=== PATIENT | female | born 1960 | race Caucasian/White ===

== ENCOUNTER 2018-12-02 11:17 | Emergency (ER) | payer OTHER ==
--- NOTE | 2018-12-02 11:22 | PDOC ---
History of Present Illness - General Chief Complaint: Laceration Stated Complaint: rt thumb lac Time Seen by Provider: 12/02/18 11:19 History Source: Patient Exam Limitations: No Limitations - History of Present Illness Initial Comments: 12/02/18 11:21 58 YOF with rt thumb laceration s/p cutting while chopping cucumbers at home. +bleeding, able to be controlled +numbness to area of laceration tdap <10 years. 12/02/18 11:38 Past History - Past Medical History Allergies/Adverse Reactions: Allergies Allergy/AdvReac Type Severity Reaction Status Date / Time quinidine Allergy Severe Anaphylaxis Verified 12/02/18 11:18 epinephrine Allergy dental epi Verified 12/02/18 11:18 Tetracyclines Allergy Verified 12/02/18 11:18 eggplant Allergy hives Uncoded 12/02/18 11:18 Review of Systems - Review of Systems Able to Perform ROS?: Yes Comments:: 12/02/18 11:19 MUSCULOSKELETAL: No joint pain and swelling. No muscle pain/arthralgias. Back: no back pain SKIN: no redness or skin changes, no discharge, no rash. +thumb laceration. + bleeding. +bruising. Hematologic: +bleeding. NEUROLOGIC: No weakness, +finger numbness Allergic/Immunologic: no allergies All other systems reviewed and negative, or as documented in HPI. 12/02/18 11:20 12/02/18 11:38 *Physical Exam - Physical Exam Comments: 12/02/18 11:20 General: NAD, well appearing Vascular: 2+ radialis pulses symmetric and equal. Neuro: distal merchandise presentation associate strength 5/5. sensation grossly intact in median/radial/ ulnar distribution. MSK: soft compartments, Cap refill <2 sec. 2+ radialis pulses bilaterally and symmetric. Thumb IP intact. no joint tenderness. FROM. Skin: color normal color, warm and well perfused. superficial curvilinear laceration to right distal thumb pad measuring 2.5cm +tender to palp, +bleeding on palp 12/02/18 11:38 Procedures - Laceration/Wound Repair Right Volar Finger Wound Length: to 2.5 cm Wound Explored: clean Wound's Depth, Shape: superficial Irrigated w/ Saline: Yes Betadine Prep: No Wound Debrided: minimal Wound Repaired With: Dermabond Sterile Dressing Applied: Yes Progress: 12/02/18 11:39 The patient had a laceration that was 2.5cm in length. The wound was irrigated and cleaned. No foreign bodies were appreciated. It was subsequently closed with Dermabond in 4 layers. Medical Decision Making - Medical Decision Making 12/02/18 11:22 wound/laceration assessed and repaired, w/o complications, bleeding controlled. area cleaned and dried, dressings placed with topical bacitracin. monitor for signs of infection including fevers or chills, redness, streaking, swelling, purulence, malodor. keep dry x 24 hours, then may wash with soap and water 2-3X per day, topical antibiotics such as neosporin. follow up in days for suture removal. motrin/tylenol for pain control. tetanus is also up to date. pt and family made aware of impression and plan. copious irrigation with sterile water/normal saline approx 1 Liter, tolerated without difficulty. areas cleaned and dried, xeroform/topical abx, non adherent dressings, gauze and supportive care. No sutures indicated OR sutures placed for wound approximation *DC/Admit/Observation/Transfer Diagnosis at time of Disposition: Laceration of thumb - Discharge Dispostion Disposition: HOME Condition at time of disposition: Improved Decision to Admit order: No - Referrals - Patient Instructions Printed Discharge Instructions: DI for Laceration Repair Additional Instructions: Wound dressed with dermabond and steri strips. dermabond will fall off in 1 week. Follow up with your primary care doctor within 48-72 hours for a wound check. Keep wound covered and dry for 24 hours then clean with soap and water daily - do not scrub. Return to the ED for any worsening pain, redness, streaking (red lines), swelling, fever or chills. Keep the wound clean and as dry as possible. Do not immerse or soak the wound in water. This means no swimming, washing dishes (unless thick rubber gloves are used), baths, or hot tubs until the stitches are removed or after about two weeks if absorbable suture material was used. Leave original bandages on the wound for the first 24 hours. After this time, showering or rinsing is recommended, rather than bathing. the first day, remove old bandages and gently cleanse the wound with soap and water. Cleansing twice a day prevents buildup of debris and will result in easier suture removal. - Post Discharge Activity Forms/Work/School Notes: Back to Work
[2018-12-02 11:28] VITALS: BP 133/59; PULSE 72; TEMP 98.3; BMI 35.2
== END 2018-12-02 11:44 | disposition home or self-care (01) ==
LOC: FER 11:17
PROC: 0HQFXZZ Repair Right Hand Skin, External Approach (ICD-10-PCS; principal; 2018-12-02)
DX: S61.011A Laceration without foreign body of right thumb without damage to nail, initial encounter (principal); W26.0XXA Contact with knife, initial encounter; Y93.G1 Activity, food preparation and clean up; Y92.89 Other specified places as the place of occurrence of the external cause
CPT/HCPCS: 99283-25

== ENCOUNTER 2020-01-08 16:55 | Emergency (ER) | payer OTHER ==
[2020-01-08] MEDS ORDERED: ONDANSETRON 4 MG/2 ML VIAL IVPUSH ONE (17:12)
[2020-01-08] MEDS ORDERED: SODIUM CHLORIDE 0.9% 500 ML INFUS.BAG IV ONE (17:12)
[2020-01-08] MEDS ORDERED: morphine CARPU-JECT 4 MG/1 ML DISP.SYRIN IVPUSH ONE ×2 (17:12→18:52)
[2020-01-08] MEDS ORDERED: MAG HYDROX/AL HYDROX/SIMETH -MYLANTA- ORAL SUSPENSION PO ONE (17:12)
[2020-01-08] MEDS ORDERED: morphine SULFATE 4 MG/ML VIAL ONE ×2 (17:15→18:57)
[2020-01-08] MEDS ORDERED: ONDANSETRON 4 MG/2 ML VIAL ONE (17:15)
[2020-01-08 17:18] VITALS: BP 127/62; PULSE 89; BMI 34.4
[2020-01-08] MEDS ORDERED: MAG HYDROX/AL HYDROX/SIMETH 30 ML UNIT-DOSE CUP ONE (17:19)
[2020-01-08] MEDS ORDERED: FAMOTIDINE 20 MG/50 ML IVPB 20 MG/50 ML MG IVPB ONE ×2 (17:20→17:22)
--- NOTE | 2020-01-08 17:20 | PDOC ---
History of Present Illness - General Chief Complaint: Pain Stated Complaint: ABD PAIN Time Seen by Provider: 01/08/20 16:59 - History of Present Illness Initial Comments: The pt is a 59F w/ a history of Vera's esophagus, IBS, pyelonephritis, s/p nikki presents for evaluation of several hours of epigastric abdominal pain w/ associated nausea. The pain is burning/achy, non-radiating, associated with nausea, and is not exacerbated or alleviated by anything she can identify. She also reports generalized weakness. She has had pain similar to this previously. She has not been able to take anything for pain today. She denies fevers/chills, chest pain, trouble breathing vomiting, dysuria, hematuria, blood in her stool. 01/08/20 17:12 Past History - Medical History Allergies/Adverse Reactions: Allergies Allergy/AdvReac Type Severity Reaction Status Date / Time quinidine Allergy Severe Anaphylaxis Verified 01/08/20 17:00 epinephrine Allergy dental epi Verified 01/08/20 17:00 Tetracyclines Allergy Verified 01/08/20 17:00 eggplant Allergy hives Uncoded 01/08/20 17:00 Home Medications: Ambulatory Orders Diclofenac Sodium/Misoprostol [Diclofenac-Misoprost 75-200 Tb] 1 tab PO BID 11/09/19 Ondansetron [Zofran -] 4 mg PO TID PRN #14 tablet 11/09/19 Pantoprazole Sodium [Protonix] 40 mg PO DAILY 11/09/19 Dicyclomine HCl [Bentyl Oral Solution -] 10 mg PO Q6H #140 ml 01/08/20 Cardiac Disorders: Yes (SVT, CORONARY SPASM) COPD: No GI Disorders: Yes (abd spasms) Disorders: Yes (PYELONEPHRITIS) Hypercholesterolemia: Yes - Surgical History Cholecystectomy: Yes - Psycho-Social/Smoking History Smoking History: Never smoked Have you smoked in the past 12 months: No Information on smoking cessation initiated: No - Substance Abuse Hx (Audit-C & DAST Scrn) How often the patient has a drink containing alcohol: Monthly or less Score: In Men: 4 or > Positive; In Women: 3 or > Positive: 1 Screen Result (Pos requires Nsg. Audit-10AR): Negative In the last yr the pt used illegal drug/Rx for NonMed reason: No Score: Yes response is considered Positive: 0 Screen Result (Positive result requires Nsg. DAST-10): Negative Review of Systems - Review of Systems Able to Perform ROS?: Yes Comments:: GENERAL/CONSTITUTIONAL: No fever or chills. No weakness HEAD, EYES, EARS, NOSE AND THROAT: No change in vision. No change in hearing. No sore throat CARDIOVASCULAR: No chest pain or shortness of breath RESPIRATORY: Denies cough, hemoptysis GASTROINTESTINAL: No vomiting, diarrhea or constipation GENITOURINARY: No dysuria, frequency, or change in urination MUSCULOSKELETAL: No joint or muscle swelling or pain. No neck or back pain SKIN: No rash NEUROLOGIC: No headache, vertigo, loss of consciousness, or change in strength/sensation ENDOCRINE: No increased thirst. No abnormal weight change HEMATOLOGIC/LYMPHATIC: No anemia, easy bleeding, or history of blood clots ALLERGIC/IMMUNOLOGIC: No hives or skin allergy 01/08/20 18:24 Is the patient limited Uzbek proficient: No *Physical Exam - Vital Signs Last Vital Signs Temp Pulse Resp BP Pulse Ox 89 18 127/62 98 01/08/20 16:55 01/08/20 16:55 01/08/20 16:55 01/08/20 16:55 - Physical Exam GENERAL: Awake, alert, and oriented to person/place/time, in no acute distress HEAD: No signs of trauma, normocephalic, atraumatic EYES: PERRLA, EOMI, sclera anicteric, conjunctiva clear ENT: Hearing grossly normal, nares patent, oropharynx clear without exudates. Moist mucosa LUNGS: No distress, speaks in full sentences, clear to auscultation bilaterally HEART: Regular rate and rhythm, normal S1 and S2, no murmurs appreciated, peripheral pulses normal and equal bilaterally ABDOMEN: Soft, epigastric TTP w/o rebound or guarding, normoactive bowel sounds EXTREMITIES: Normal inspection, Normal range of motion, no edema. No clubbing or cyanosis NEUROLOGICAL: Cranial nerves II through XII grossly intact. Normal speech, normal gait, no focal sensorimotor deficits SKIN: Warm, Dry 01/08/20 18:54 ED Treatment Course - LABORATORY CBC & Chemistry Diagram: 01/08/20 17:15 01/08/20 17:15 Medical Decision Making - Medical Decision Making The pt is a 59F w/ a history of Vera's esophagus, IBS, pyelonephritis, s/p nikki presents for evaluation of several hours of epigastric abdominal pain w/ associated nausea. Ddx: IBS, PUD, GERD, gastroparesis; constipation ED Course CMP, CBC, Lipase Morphine, Pepcid, Maalox, Zofran for symptomatic relief No leukocytosis No anemia Lytes overall unremarkable LFTs unremarkable No EVA Trop I neg Pt given hyoscyamine as it worked before Pt with returning pain, will give Ofirmev and Morphine for pain 01/08/20 18:55 Pt signed out to night team Discharge - Discharge Information Problems reviewed: Yes Clinical Impression/Diagnosis: Abdominal pain Qualifiers: Abdominal location: epigastric Qualified Code(s): R10.13 - Epigastric pain Condition: Stable - Admission No - Additional Discharge Information Prescriptions: Dicyclomine HCl [Bentyl Oral Solution -] 10 mg PO Q6H #140 ml - Follow up/Referral - Patient Discharge Instructions Additional Instructions: Take the Bentyl 10 cc as often as every 4-6 hours as needed for abdominal pain a nd spasm. Return to the emergency department immediately with ANY new, persistent or worsening symptoms. Continue any medications as previously prescribed by your physician. You should follow up with your primary doctor as soon as possible regarding today's emergency department visit. . Please make sure your doctor reviews the results of your emergency evaluation. Thank you for coming to the Emergency Department today for your care. It was a pleasure to see you today. Please note that your evaluation is INCOMPLETE until you follow-up with your doctor. - Post Discharge Activity
[2020-01-08 17:36] LABS: BASO % 0.5 % (0-2.0); EOS % 3.6 % (0-4.5); HEMATOCRIT 38.4 % (32.4-45.2); HEMOGLOBIN 12.5 GM/dl (10.7-15.3); LYMPH % 26.5 % (8-40); MCH 28.6 pg (25.7-33.7); MCHC 32.5 g/dl (32.0-36.0); MEAN PLT VOLUME 8.7 fl (7.5-11.1); MONO % 7.1 % (3.8-10.2); NEUT % 62.3 % (42.8-82.8); PLATELET COUNT 347 K/MM3 (134-434); RBC 4.37 M/mm3 (3.60-5.2); RDW 13.5 % (11.6-15.6); WHITE BLOOD COUNT 6.2 K/mm3 (4.0-10.8)
[2020-01-08 17:45] LABS: BILIRUBIN,TOTAL 0.2 mg/dl (0.2-1); CALCIUM 8.7 mg/dl (8.5-10); CREATININE 1.3 mg/dl (0.55-1.3); POTASSIUM 3.5 mmol/L (3.5-5.1); TOT PROT 7.7 g/dl (6.4-8.2)
[2020-01-08] MEDS ORDERED: HYOSCYAMINE SULFATE 0.125 MG TABLET PO ONE (18:08)
[2020-01-08] MEDS ORDERED: HYOSCYAMINE SULFATE 0.125 MG *ODT ONE (18:13)
--- NOTE | 2020-01-08 18:19 | PDOC ---
Attending Attestation - Resident Resident Name: Jay Jay Cason - ED Attending Attestation I have performed the following: I have examined & evaluated the patient, The case was reviewed & discussed with the resident, I agree w/resident's findings & plan, Exceptions are as noted - HPI HPI: 01/08/20 18:19 59y F hx of ibs presents with SVT, pyelonephritis, ibs, hl, presens with complaint of abd spasms, feeling generally weak, tinglin gextremities, lightheaded, on set approx 30 min prior to presentation. she felt earlier today and had some lunch prior to onset of the pain. nots she was recently started on ve The pt endorses feeling similar symptoms yesterday for a brief period of time that resolved. She denies any fever/chills, vomiting, bpr. Pt states she was started on vibrezi that has started making her constipation, and her pain seems to start several hours after taking the medication. (started medication 2 days ago). - Physicial Exam PE: 01/08/20 18:25 GENERAL: The patient is awake, alert, and fully oriented, Nontoxic - in no acute distress. HEAD: Normocephalic, atraumatic. EYES: extraocular movements intact, sclera anicteric, conjunctiva clear. ENT: Normal voice, Moist mucous membranes. NECK: Normal range of motion, supple LUNGS: Breath sounds equal, clear to auscultation bilaterally. No wheezes, no rhonchi, no rales. HEART: Regular rate and rhythm, normal S1 and S2 without murmur, rub or gallop. ABDOMEN: Soft, mild diffuse tenderness, No guarding, no rebound. No CVA tenderness EXTREMITIES: Normal range of motion, no edema. NEUROLOGICAL: No facial assymetry, Normal speech, movinga ll 4 extremities spontaneously and symmetrically PSYCH: Normal mood, normal affect. SKIN: Warm, Dry, normal turgor, - Medical Decision Making 01/08/20 18:27 May be medication side effect Will obtain basic labs will give Pepcid Maalox, fluids, Zofran Will reassess Discharge - Discharge Information Problems reviewed: Yes Clinical Impression/Diagnosis: Abdominal pain Qualifiers: Abdominal location: epigastric Qualified Code(s): R10.13 - Epigastric pain Condition: Stable - Additional Discharge Information Prescriptions: Dicyclomine HCl [Bentyl Oral Solution -] 10 mg PO Q6H #140 ml - Follow up/Referral - Patient Discharge Instructions Additional Instructions: Take the Bentyl 10 cc as often as every 4-6 hours as needed for abdominal pain and spasm. Return to the emergency department immediately with ANY new, persistent or worsening symptoms. Continue any medications as previously prescribed by your physician. You should follow up with your primary doctor as soon as possible regarding today's emergency department visit. . Please make sure your doctor reviews the results of your emergency evaluation. Thank you for coming to the Emergency Department today for your care. It was a pleasure to see you today. Please note that your evaluation is INCOMPLETE until you follow-up with your doctor. - Post Discharge Activity
[2020-01-08] MEDS ORDERED: ACETAMINOPHEN 1000 MG/100 ML VIAL (NON FORMULARY) IVPB ONE (18:53)
[2020-01-08] MEDS ORDERED: DICYCLOMINE HCL 10 MG/5 ML PO ONE (18:53)
[2020-01-08] MEDS ORDERED: DICYCLOMINE HCL 10 MG CAPSULE ONE ×2 (18:56→20:41)
[2020-01-08] MEDS ORDERED: ACETAMINOPHEN INJECTION 100 ML IVPB ONE (18:57)
[2020-01-08] MEDS ORDERED: DICYCLOMINE HCL 10 MG/5 ML PO STA (20:35)
--- NOTE | 2020-01-08 20:37 | PDOC ---
*Physical Exam - Vital Signs Last Vital Signs Temp Pulse Resp BP Pulse Ox 89 18 127/62 98 01/08/20 16:55 01/08/20 16:55 01/08/20 16:55 01/08/20 16:55 ED Treatment Course - LABORATORY CBC & Chemistry Diagram: 01/08/20 17:15 01/08/20 17:15 - ADDITIONAL ORDERS Additional order review: Laboratory Results 01/08/20 01/08/20 17:15 17:15 Sodium 140 Potassium 3.5 Chloride 102 Carbon Dioxide 24 Anion Gap 14 BUN 23.0 H Creatinine 1.3 Est GFR (CKD-EPI)AfAm 52.00 Est GFR (CKD-EPI)NonAf 44.87 Random Glucose 104 Calcium 8.7 Total Bilirubin 0.2 AST 27 ALT 22 Alkaline Phosphatase 102 Troponin I < 0.03 Total Protein 7.7 Albumin 4.0 Lipase 85 01/08/20 17:15 RBC 4.37 MCV 88.0 MCHC 32.5 RDW 13.5 MPV 8.7 Neutrophils % 62.3 Lymphocytes % 26.5 Monocytes % 7.1 Eosinophils % 3.6 Basophils % 0.5 - Medications Given in the ED: ED Medications Discontinued Medications Generic Name Dose Route Start Last Admin Trade Name Freq PRN Reason Stop Dose Admin Acetaminophen 1,000 mg 01/08/20 18:53 01/08/20 19:44 Ofirmev Injection - IVPB 01/08/20 18:54 1,000 mg ONCE ONE Administration Al Hydroxide/Mg Hydroxide 30 ml 01/08/20 17:12 01/08/20 18:05 Mylanta Suspension - PO 01/08/20 17:13 30 ml ONCE ONE Administration Dicyclomine HCl 10 mg 01/08/20 18:53 01/08/20 19:05 Bentyl Oral Solution - PO 01/08/20 18:54 10 mg ONCE ONE Administration Hyoscyamine Sulfate 0.125 mg 01/08/20 18:08 01/08/20 18:14 Levsin - PO 01/08/20 18:09 0.125 mg ONCE ONE Administration Famotidine/Sodium Chloride 20 mg in 50 mls @ 100 mls/hr 01/08/20 17:20 01/08/20 17:24 Pepcid 20 Mg Premixed Ivpb - IVPB 01/08/20 17:49 100 mls/hr ONCE ONE Administration Morphine Sulfate 4 mg 08/03/20 17:12 01/08/20 17:18 Morphine Injection - IVPUSH 01/08/20 17:13 4 mg ONCE ONE Administration Morphine Sulfate 4 mg 01/08/20 18:52 01/08/20 19:10 Morphine Injection - IVPUSH 01/08/20 18:53 4 mg ONCE ONE Administration Ondansetron HCl 4 mg 01/08/20 17:12 01/08/20 17:15 Zofran Injection IVPUSH 01/08/20 17:13 4 mg ONCE ONE Administration Sodium Chloride 1,000 ml 01/08/20 17:12 01/08/20 17:10 Normal Saline - IV 01/08/20 17:13 1,000 ml ONCE ONE Administration ED Progress Note - Progress Note Progress Note: 01/08/20 20:32 Care of this patient was transferred to in from Dr. olvera at 1900 hrs. Patient is an employee here with history of irritable bowel syndrome. Patient has been under a lot of stress secondary to the COVID issues. Patient had a bout of diverticulitis in the past with similar symptoms. Patient had lab work that was done that was all normal. Patient given morphine some antispasmodics and fluids Patient also given hyoscyamine and Bentyl. Patient still has having intermittent cramps but does feel better. Patient discharged home has a GI doctor she will call and follow-up within the morning. Discharge - Discharge Information Problems reviewed: Yes Clinical Impression/Diagnosis: Abdominal pain Qualifiers: Abdominal location: epigastric Qualified Code(s): R10.13 - Epigastric pain Condition: Stable - Admission No - Follow up/Referral - Patient Discharge Instructions Additional Instructions: Take the Bentyl 10 cc as often as every 4-6 hours as needed for abdominal pain and spasm. Return to the emergency department immediately with ANY new, persistent or worsening symptoms. Continue any medications as previously prescribed by your physician. You should follow up with your primary doctor as soon as possible regarding today's emergency department visit. . Please make sure your doctor reviews the results of your emergency evaluation. Thank you for coming to the Emergency Department today for your care. It was a pleasure to see you today. Please note that your evaluation is INCOMPLETE until you follow-up with your doctor. - Post Discharge Activity
== END 2020-01-08 20:52 | disposition home or self-care (01) ==
LOC: FER 16:55
PROC: 3E033NZ Introduction of Analgesics, Hypnotics, Sedatives into Peripheral Vein, Percutaneous Approach (ICD-10-PCS; principal; 2020-01-08)
PROC: 3E033GC Introduction of Other Therapeutic Substance into Peripheral Vein, Percutaneous Approach (ICD-10-PCS; 2020-01-08)
DX: R10.13 Epigastric pain (principal)
CPT/HCPCS: 36415; 80053; 83690; 84484; 85025; 99284-25; J0131

== ENCOUNTER 2020-04-22 12:38 | Emergency (ER) | payer OTHER | END 2020-04-22 12:41 | disposition home or self-care (01) | LOC: JVIRT 12:38 | DX: Z11.59 Encounter for screening for other viral diseases (principal) | CPT/HCPCS: C9803; Q3014-GT; U0003 ==

== ENCOUNTER 2020-05-08 14:30 | Emergency (ER) | payer OTHER ==
[2020-05-08 14:49] VITALS: BP 127/85; PULSE 84; TEMP 98.8; BMI 34.1
[2020-05-08] MEDS ORDERED: IBUPROFEN 400 MG TABLET (FP) PO ONE ×2 (15:24→15:39)
== END 2020-05-08 15:46 | disposition home or self-care (01) ==
LOC: FER 14:30
DX: S80.02XA Contusion of left knee, initial encounter (principal)
CPT/HCPCS: 73560-TC-LT-FY; 99283-25

== ENCOUNTER 2024-04-05 10:09 | Emergency (ER) | payer BC ==
[2024-04-05] MEDS ORDERED: ONDANSETRON 4 MG/2 ML VIAL ONE (10:24)
[2024-04-05] MEDS ORDERED: MECLIZINE HCL 25 MG TABLET (FP) ONE ×3 (10:25→19:10)
[2024-04-05] MEDS ORDERED: ACETAMINOPHEN INJECTION 100 ML ONE (10:25)
[2024-04-05] MEDS: SODIUM CHLORIDE 1,000 ML IV STA (10:29)
[2024-04-05] MEDS: MECLIZINE HCL 25 MG TABLET (FP) PO ONE ×3 (10:29→19:15)
[2024-04-05] MEDS: ACETAMINOPHEN 1000 MG/100 ML BAG IVPB ONE (10:30)
[2024-04-05] MEDS: ONDANSETRON 4 MG/2 ML VIAL IVPUSH ONE (10:30)
[2024-04-05 10:37] VITALS: RESP 18; BMI 38.0
[2024-04-05 11:11] LABS: HEMATOCRIT 43.5 % (32.4-45.2); HEMOGLOBIN 13.8 G/dL (10.7-15.3); MCH 29.4 pg (25.7-33.7); MCHC 31.6 g/dl (32.0-36.0); MEAN PLT VOLUME 8.5 fl (7.5-11.1); RBC 4.68 10^6/uL (3.60-5.2); RDW 14.4 % (11.6-15.6); WHITE BLOOD COUNT 8.4 10^3/uL (4.0-10.8)
[2024-04-05 11:13] LABS: ALBUMIN 4.5 g/dl (3.4-5.0); BILIRUBIN,TOTAL 0.5 mg/dl (0.2-1); CALCIUM 9.7 mg/dl (8.5-10.1); TOT PROT 7.8 g/dl (6.4-8.2)
[2024-04-05 11:18] LABS: PLATELET ESTIMATE ADEQUATE
[2024-04-05] MEDS: LORazepam 2 MG/ML SDV VIAL IVPUSH STA ×2 (12:16→15:51)
[2024-04-05] MEDS ORDERED: KETOROLAC TROMETHAMINE 30 MG/1 ML VIAL ONE (12:57)
[2024-04-05] MEDS: KETOROLAC TROMETHAMINE 30 MG/1 ML VIAL IVPUSH ONE (13:05)
[2024-04-05 18:06] VITALS: BP 139/63; PULSE 64; TEMP 98.2
== END 2024-04-05 19:15 | disposition home or self-care (01) ==
LOC: FER 10:09
PROC: 3E033NZ Introduction of Analgesics, Hypnotics, Sedatives into Peripheral Vein, Percutaneous Approach (ICD-10-PCS; principal; 2024-04-05)
PROC: 3E0333Z Introduction of Anti-inflammatory into Peripheral Vein, Percutaneous Approach (ICD-10-PCS; 2024-04-05)
PROC: 3E033GC Introduction of Other Therapeutic Substance into Peripheral Vein, Percutaneous Approach (ICD-10-PCS; 2024-04-05)
PROC: 3E033GC Introduction of Other Therapeutic Substance into Peripheral Vein, Percutaneous Approach (ICD-10-PCS; 2024-04-05)
PROC: 3E0337Z Introduction of Electrolytic and Water Balance Substance into Peripheral Vein, Percutaneous Approach (ICD-10-PCS; 2024-04-05)
DX: R42 Dizziness and giddiness (principal); R11.0 Nausea; R51.9 Headache, unspecified; Z20.822 Contact with and (suspected) exposure to COVID-19
CPT/HCPCS: 0241U-QW; 36415; 70551-TC; 80053; 84484; 85027; 93005; 99285-25; J0131

== ENCOUNTER 2024-11-07 09:20 | Day surgery (SDC) | payer BC ==
[2024-11-07 09:52] VITALS: RESP 18; TEMP 97; BMI 36.9
[2024-11-07 11:31] VITALS: BP 131/59; PULSE 78
== END 2024-11-07 11:30 | disposition home or self-care (01) ==
LOC: FASU-ENDO 09:20
PROVIDERS: ATTEND Internal Medicine Gastroenterology
PROC: 0DJD8ZZ Inspection of Lower Intestinal Tract, Via Natural or Artificial Opening Endoscopic (ICD-10-PCS; principal; 2024-11-07 10:14)
DX: Z12.11 Encounter for screening for malignant neoplasm of colon (principal); K64.4 Residual hemorrhoidal skin tags